=== PATIENT | female | born 1935 | race American Indian/Alaskan Native ===

== ENCOUNTER 2023-11-14 14:43 | Emergency (ER) | payer OTHER, MEDICARE ==
[2023-11-14 15:20] VITALS: TEMP 97.6; BMI 31.1
[2023-11-14] MEDS ORDERED: ACETAMINOPHEN 500 MG TABLET (FP) PO ONE (16:26)
[2023-11-14] MEDS ORDERED: ACETAMINOPHEN 325 MG TABLET (FP) ONE (17:06)
[2023-11-14 18:13] LABS: EPI CELLS 1 /uL (0-25.1); HYALINE CASTS 0 /uL (0-3.1); URINE APPEARANCE CLOUDY; URINE BACTERIA >9,000 /uL (0-1359); URINE BILIRUBIN NEGATIVE (NEGATIVE); URINE COLOR YELLOW; URINE GLUCOSE (UA) NEGATIVE (NEGATIVE); URINE KETONE NEGATIVE (NEGATIVE); URINE LEUK ESTERASE 2+ (NEGATIVE); URINE NITRITE NEGATIVE (NEGATIVE); URINE PROTEIN 1+ (NEGATIVE); URINE RBC 35 /uL (0-23.9); URINE UROBILINOGEN 0.2 mg/dL (0.2-1.0); URINE WBC 283 /uL (0-25.8)
[2023-11-14] MEDS ORDERED: CEPHALEXIN MONOHYDRATE 500 MG CAPSULE (UD) PO ONE (18:35)
[2023-11-14] MEDS ORDERED: CEPHALEXIN MONOHYDRATE 500 MG CAPSULE (UD) ONE (18:53)
[2023-11-15 01:12] VITALS: BP 167/90; PULSE 114; RESP 20
== END 2023-11-15 01:23 | disposition home or self-care (01) ==
LOC: JER 14:43
PROC: 2W3CX1Z Immobilization of Right Lower Arm using Splint (ICD-10-PCS; principal; 2023-11-14)
DX: S69.91XA Unspecified injury of right wrist, hand and finger(s), initial encounter (principal); N39.0 Urinary tract infection, site not specified; M25.531 Pain in right wrist; M25.431 Effusion, right wrist; W07.XXXA Fall from chair, initial encounter; Y93.I9 Activity, other involving external motion
CPT/HCPCS: 29125; 73030-TC-RT-FY; 73060-TC-RT-FY; 73070-TC-RT-FY; 73110-TC-RT-FY; 73130-TC-RT-FY; 81003; 87086; 87186; 99284-25